=== PATIENT | female | born 1940 | race Caucasian/White ===

== ENCOUNTER 2023-01-29 07:11 | Day surgery (SDC) | payer MEDICARE, MEDICAID ==
[2023-01-29] VITALS (9 sets, daily range): BP systolic 129–177; BP diastolic 48–73
[~2023-01-29] VITALS: Ht 147.3 cm; Wt 42.1 kg
[~2023-01-29 07:11] MED LIST: BUDE10.22 INH; CALC-793 PO; CALC500T33 PO; CLIN150C8 PO; DENO60DI SQ; HYDR-4383 PO; IBUP-24 PO; LEVO100T PO; MILN50TA PO; OMEP20CA4 PO; ZOLP5TAB2 PO
[2023-01-29] MEDS ORDERED: ceFAZolin inj. 2,000 MG in normal saline soln 50 ML IV ONE (07:50)
[2023-01-29] MEDS ORDERED: ACET-2778 PO (07:57)
[2023-01-29] MEDS ORDERED: DICL50TA8 PO (07:57)
[2023-01-29] MEDS ORDERED: LEVO75TA7 PO (07:57)
[2023-01-29 07:58] LABS: BASOPHILS % (AUTO) 0.5 % (0-1); EOSINOPHILS # (AUTO) 0.1 X10'3 (0-0.9); EOSINOPHILS % (AUTO) 3.1 % (0-6); HEMOGLOBIN 12.1 g/dl (12.0-16.0); LYMPHOCYTES # (AUTO) 1.5 X10'3 (1.1-4.8); LYMPHOCYTES % (AUTO) 35.9 % (21-51); MEAN CORPUSCULAR HEMOGLOBIN 30.2 PG (27.0-31.0); MEAN CORPUSCULAR HGB CONC 32.7 g/dL (33.0-36.5); MEAN CORPUSCULAR VOLUME 92.5 FL (78-98); MEAN PLATELET VOLUME 9.8 FL (7.4-10.4); MONOCYTES # (AUTO) 0.4 X10'3 (0-0.9); MONOCYTES % (AUTO) 9.8 % (2-12); NEUTROPHILS # (AUTO) 2.2 X10'3 (1.8-7.7); NEUTROPHILS % (AUTO) 50.7 % (42-75); PLATELET COUNT 199 X10'3 (140-440); RED CELL DISTRIBUTION WIDTH 15.5 % (11.5-14.5); WHITE BLOOD COUNT 4.3 X10'3 (4.5-11.0)
[2023-01-29] MEDS ORDERED: ceFAZolin inj. 2,000 MG in dextrose 5%-water 100 ML IV ONE (08:08)
[2023-01-29] MEDS ORDERED: diphenhydrAMINE 50 mg/ml inj ONE (08:53)
[2023-01-29] MEDS ORDERED: LIDOcaine 1% 30ml preserv. free vial ONE (08:54)
[2023-01-29] MEDS ORDERED: fentaNYL/PF 50MCG/1 ML 2ML syringe ONE ×2 (08:54→10:28)
[2023-01-29] MEDS ORDERED: midazolam 1 mg/ML 2ml injection ONE ×2 (08:54→10:28)
[2023-01-29] MEDS ORDERED: morphine 4 MG/ML inj SYRINge IV PRN (11:30)
== END 2023-01-29 14:24 | disposition home or self-care (01) ==
LOC: SSTAY O 07:11
PROVIDERS: ATTEND Radiology Vascular & Interventional Radiology
DX: M80.08XA Age-related osteoporosis with current pathological fracture, vertebra(e), initial encounter for fracture (principal); M54.6 Pain in thoracic spine; Z88.5 Allergy status to narcotic agent; Z88.8 Allergy status to other drugs, medicaments and biological substances; Z90.710 Acquired absence of both cervix and uterus; Z90.49 Acquired absence of other specified parts of digestive tract; Z98.890 Other specified postprocedural states; F17.290 Nicotine dependence, other tobacco product, uncomplicated; Z79.899 Other long term (current) drug therapy
CPT/HCPCS: 22513; 36415; 85025; 85610; 99152; 99153; C1713; J1200; J2250; J3010; J3490; J7030; A4615; A4620